=== PATIENT | male | born 1985 | race African-American/Black ===

== ENCOUNTER 2017-06-18 13:13 | Emergency (ER) | payer OTHER ==
[~2017-06-18] VITALS: Ht 177.8 cm; Wt 81.5 kg
[2017-06-18 13:29] VITALS: BP 130/78
== END 2017-06-18 15:37 | disposition left against medical advice (07) ==
LOC: EMS 13:16
DX: R22.0 Localized swelling, mass and lump, head (principal); F17.210 Nicotine dependence, cigarettes, uncomplicated; Z53.21 Procedure and treatment not carried out due to patient leaving prior to being seen by health care provider